=== PATIENT | male | born 1965 | race Caucasian/White ===

== ENCOUNTER → 2017-06-02 | Outpatient (CLI) | payer OTHER ==
[~2017-06-02] MED LIST: AMLODIPINE BESYL5 MG PO; DIGOXIN125 MCG PO; ELIQUIS5 MG PO; HYDROCHLOROTHIA25 MG PO; HYDROCODON-ACE1 EAC5 PO; KLONOPIN0.5 M3 PO; LIPITOR40 MG PO; LO-DOSE ASPIRIN81 M1 PO; LOPRESSOR PO; METOPROLOL PO; METOPROLOL TAR25 MG PO; NEURONTIN100 MG PO; NICOTINE PATCH1 EAC1 TD; PERCOCET10 PO; ZESTRIL40 MG PO
--- NOTE | ~2017-06-02 | CO ---
Unit #: [id number] #: [id number] Patient: SADIE VILLARREAL JR [id number] [address] [place], [place] [address] [id number] O MR#: [id number] NAME: SADIE VILLARREAL JR ROOM: Age: 52 Sex: M Admission Date: 06/02/2017 : 1965 Attending Physician: Valdez Turner M.D. Primary Care Physician: Rocco Andrade Jr., A.P.R.N. Consultation Date: 06/02/2017 CONSULTATION REPORT HISTORY OF PRESENT ILLNESS This is a 52-year-old white male with history of hypertension, hyperlipidemia, COPD, obstructive sleep apnea and is noncompliant with CPAP, nicotine abuse, and recently diagnosed with hepatitis not sure if it is B or C, who came in for preadmission today for repair of a right inguinal hernia by Dr. Turner scheduled for 06/13/2017. Preop EKG shows atrial fibrillation. The rate is around 102, it has a variable rate compared to an EKG that was done on 08/20/2016. He was in normal sinus rhythm. The patient states over the weekend, he was helping family member move and he was lifting heavy furniture. He said he got a little dyspneic and also lightheaded. He said he had to sit down and rest a few times. He in the past few months has had occasional left anterior chest sharp pain, shooting without any radiation. He said it only lasts for maybe 5 or 10 seconds, he denies any diaphoresis, shortness of breath, palpitations, dizziness, or nausea with the episode. He has not had any recent fever or chills. He has occasional nonproductive thick cough. States he has been compliant with his medications that he has been prescribed. He did have a normal echo and stress test back in 2014. He has not seen a member services coordinator since that time. PAST MEDICAL HISTORY 1. Mild obesity, 75 pounds. 2. In 03/2015, he had an exercise Cardiolite stress test that showed exercise time 7 minutes and 40 seconds. No infarction or ischemia. EF was 90%. 3. In 03/2015, 2D echo, LVEF of 69%. Technically limited study. Moderate left ventricular hypertrophy. 4. Hypertension. 5. Hyperlipidemia. 6. COPD. 7. Obstructive sleep apnea, but noncompliant with his CPAP. 8. Hepatitis C or B, the patient is not sure. 9. Nicotine abuse. PAST SURGICAL HISTORY Cervical spine surgery in 07/2016 that was done at [facility]. HOME MEDICATIONS Amlodipine 5 mg one tablet p.o. daily, aspirin 81 mg p.o. daily, atorvastatin 40 mg p.o. daily, hydrochlorothiazide 25 mg one tablet p.o. daily, lisinopril 40 mg one tablet daily, clonazepam 0.5 mg one tablet p.o. daily, cyclobenzaprine HCl 5 mg one tablet p.o. daily, gabapentin 100 Unit #: [id number] #: [id number] Patient: SADIE VILLARREAL JR KARRI mg p.o. daily, Movantik 25 mg one tablet daily, [place] 10/325 one tablet every 8 hours p.r.n., mg one tablet p.o. q.h.s., vitamin B12 1000 mcg p.o. daily, vitamin B6 25 mg p.o. daily, vitamin D2 one tablet daily. ALLERGIES No known drug allergies. SOCIAL HISTORY The patient lives in his home. He works for a [employer]. 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 He says he does mow his grass and he takes care of his home. He is not on any routine exercise regimen however. He does smoke about a pack of cigarettes a day, but smoking most of his adult life. He used to drink occasional beer, but nothing excessively. He denies any illicit drug abuse. FAMILY HISTORY He was told his father at the age of 42, but he is not clear of the details. He was estranged from his father. His mother of natural causes. His siblings are in generally well health. REVIEW OF SYSTEMS See details in HPI. PHYSICAL EXAMINATION GENERAL: Mr. Villarreal is a 52-year-old white male, in no acute respiratory distress. He is awake, alert, oriented. VITAL SIGNS: Blood pressure is 134/94, heart rate is 106, respirations are 17, he is afebrile, O2 saturations 94% on room air. NECK: Trachea midline. No thyromegaly or lymphadenopathy. Normal carotid upstrokes. No jugular venous distention. HEART: S1, S2. Irregular rate and rhythm. No clicks, murmurs, or rubs. LUNGS: Diminished, otherwise clear. ABDOMEN: Obese, soft, nontender. EXTREMITIES: Pedal pulses are palpable. 1+ pedal edema. DIAGNOSTIC STUDIES LABORATORY RESULTS: His glucose is 106, BUN 14, creatinine 0.6, eGFR is 115.6. Sodium 136, potassium 5.1, chloride 102, CO2 of 26, calcium is 9.6, total protein 7.1, albumin 4.1, bilirubin total 0.6, AST 28, ALT 41, alkaline phosphatase is 49. TSH and magnesium are pending. WBCs 7.1, hemoglobin 16.7, hematocrit 48.7, and platelets is 203. CARDIOVASCULAR STUDIES: EKG shows atrial fibrillation with rapid ventricular response, ventricular rate is 102 beats per minute, poor R-wave progression, low voltage in inferior leads. Compared to EKG back in 07/2016, it showed normal sinus rhythm. He had left atrial abnormality, slow R-wave progression, otherwise unremarkable. IMPRESSION 1. Inguinal hernia. 2. Atrial fibrillation with rapid ventricular response. New onset, questionable onset. 3. Hypertension. 4. Hyperlipidemia. 5. Chronic obstructive pulmonary disease. Obstructive sleep apnea, noncompliant with CPAP. 6. History of newly diagnosed hepatitis B or C. The patient is not sure. Unit #: [id number] #: [id number] Patient: SADIE VILLARREAL JR 7. In 03/2015, he had a 2D echo, LVEF of 69%. Technically limited study. Moderate left ventricular hypertrophy. 8. In 03/2015, exercise Cardiolite stress test. Exercise time 7 minutes and 40 seconds. No infarction or ischemia. Ejection fraction is 90%. PLAN 1. Cardiology has been consulted for preop evaluation before his right inguinal hernia repair. On his preop findings, his EKG shows new onset atrial fibrillation, questionable duration. Looking back, he was in normal sinus rhythm back in 07/2016. 2. Dr. Ibarra examined the patient and reviewed his records and history. We will stop his amlodipine and start him on metoprolol tartrate one tablet p.o. b.i.d. 3. We will check a TSH and magnesium and evaluate. 4. The patient does not have any signs or symptoms of acute congestive heart failure or unstable angina. He does have occasional some sharp, shooting pains in the chest, but it is somewhat atypical. After examination and review, Dr. Ibarra feels the patient is permissible to undergo surgery at an acceptable risk. 5. She advises the patient to stay on aspirin until up to the surgery and we will see the patient postoperatively or his hospitalization and we will see if he remains in atrial fibrillation. If he does we will discuss about chronic anticoagulation at that time. 6. We will instruct the patient to follow up with Dr. Ibarra on 07/31/2017Monday at 12:15 p.m. 7. We will also instruct the patient to come two weeks prior to coming in to see Dr. Ibarra that would be by 07/17/2017 to get a 24-hour Holter 1 to 2 weeks before his appointment and she will evaluate if he is in and out of atrial fibrillation. 8. Encourage the patient to completely quit smoking. Smoking cessation information provided to the patient. The patient voiced that he wants to discuss with his PCP about maybe being on Chantix. 9. Further recommendations pending. 10. The patient does have obstructive sleep apnea, and he says he is not compliant with CPAP. Encourage the patient to try to follow up on that with his PCP and try some different options for his obstructive sleep apnea to be compliant with the management. 11. Also encourage the patient to after surgery and after the next few weeks need to develop an exercise program and lose weight and healthy lifestyle modifications including diet and exercise, quit smoking. Thank you very much for allowing us to assist in the care and we will see the patient intraoperatively if necessary. Also noted that we instructed the patient to take his metoprolol that morning of his surgery. Dictated by... Raza Scott/cammie TD: 06/03/2017 11:53 JOB #: [id number] CC: Valdez Turner M.D. Unit #: [id number] #: [id number] Patient: SADIE VILLARREAL JR CONSULTATION REPORT Page 1 of 1 X Lavonne Botello APRN X CONSULTATION REPORT
--- NOTE | ~2017-06-02 | EKG ---
PATIENT: SADIE VILLARREAL UNIT #: [id number] Ventricular Rate: 102 BPM Atrial Rate: 375 BPM QRS Duration: 82 ms Q-T Interval: 336 ms QTC Calculation(Bezet): 437 ms Calculated R [place]: 34 degrees Calculated T [place]: 0 degrees Diagnosis Line: Atrial fibrillation with rapid ventricular Diagnosis Line: response Diagnosis Line: Cannot rule out Anterior infarct , age Diagnosis Line: undetermined Diagnosis Line: Abnormal ECG Diagnosis Line: No previous ECGs available Diagnosis Line: Confirmed by JANA BELLO MD ([id number]) on 06/04/2017 Diagnosis Line: 10:58:30 PM INTERPRETING MD: ACE MENON
--- NOTE | ~2017-06-02 | EKG ---
PATIENT: SADIE VILLARREAL UNIT #: [id number] Ventricular Rate: 102 BPM Atrial Rate: 375 BPM QRS Duration: 82 ms Q-T Interval: 336 ms QTC Calculation(Bezet): 437 ms Calculated R [place]: 34 degrees Calculated T [place]: 0 degrees Diagnosis Line: Atrial fibrillation with rapid ventricular Diagnosis Line: response Poor R wave progression questionable lead Diagnosis Line: position or body habitus Abnormal ECG Diagnosis Line: No previous ECGs available Diagnosis Line: Reconfirmed by JANA BELLO MD ([id number]) on Diagnosis Line: 06/04/2017 10:59:12 PM INTERPRETING MD: ACE MENON
[2017-06-02 12:22] LABS: HEMATOCRIT 48.7 % (38.0-50.0); HEMOGLOBIN 16.7 gm/dL (13.0-16.0); MEAN CELL VOLUME 90.3 FL (83-96); MEAN CORPUSCULAR HEMOGLOBIN 30.9 PG (28-34); MEAN CORPUSCULAR HGB CONC 34.2 g/dL (30-36); MEAN PLATELET VOLUME 9.1 FL (6.5-11.5); RED BLOOD COUNT 5.4 X10e (3.90-5.60); RED CELL DISTRIBUTION WIDTH 14.8 % (11.0-15.5); WHITE BLOOD COUNT 7.1 X10e3 (4.0-10.5)
[2017-06-02 12:47] LABS: ALBUMIN SERUM 4.1 g/dL (3.5-5.0); BILIRUBIN,TOTAL 0.6 mg/dL (0.2-2.0); BUN/CREATININE RATIO 23.33; CALCIUM SERUM 9.6 mg/dL (8.4-10.2); CREATININE SERUM 0.6 mg/dL (0.6-1.4); GLOM FILT RATE Estimated 115.6 mL/min (>60); POTASSIUM 5.1 mmol/L (3.5-5.1); PROTEIN TOTAL SERUM 7.1 g/dL (6.0-8.3)
== END | disposition home or self-care (01) ==
LOC: CAMB 10:58
PROVIDERS: Specialist
DX: Z01.818 Encounter for other preprocedural examination (principal); K40.90 Unilateral inguinal hernia, without obstruction or gangrene, not specified as recurrent
CPT/HCPCS: 36415; 80053; 83735; 84443; 85027; 93005

== ENCOUNTER 2017-06-07 15:50 | Inpatient (IN) | payer OTHER ==
[~2017-06-07] VITALS: Ht 175.3 cm; Wt 123.6 kg
--- NOTE | ~2017-06-07 | BMI ---
[facility] Nutrition Therapy DATE: 06/08/17 Patient: SADIE VILLARREAL Physician: ATTPRE Address: [address] [place] [address] Room/Bed: [address] [place] [address], Zip: [place] [address] Admit Date: 06/07/17 Date of : [birth year] Height: 5 9 Weight: 272 123.6 HIGH BMI NOTE: Admitting DX: Pt is a 52 y/o male admitted for right inguinal hernia repair ANTHROPOMETRICS: Ht:69" Wt:272# BMI:40.2 IBW:160 %IBW:170% DIET: NPO RECOMMENDATIONS: Once medically feasible, please initiate PO diet with a heart healthy restriction to promote gradual weight loss towards a healthy BMI (19-25) or +/- 10% of IBW. Respectfully, Robyn Ordaz, Needle Leader Shameka Herrera, MS, RD, LD Food and Nutrition[facility] Services [facility] cc: client file
--- NOTE | ~2017-06-07 | EKG ---
PATIENT: SADIE VILLARREAL UNIT #: [id number] Ventricular Rate: 89 BPM Atrial Rate: 85 BPM QRS Duration: 76 ms Q-T Interval: 334 ms QTC Calculation(Bezet): 406 ms Calculated R [place]: 0 degrees Calculated T [place]: 3 degrees Diagnosis Line: Atrial fibrillation Diagnosis Line: Abnormal ECG Diagnosis Line: When compared with ECG of 02-JUN-2017 11:32, Diagnosis Line: No significant change was found Diagnosis Line: Confirmed by GIRMA HAINES MD ([id number]) on 06/10/2017 Diagnosis Line: 3:19:00 PM INTERPRETING MD: ZAKI MENON
--- NOTE | ~2017-06-07 | TH ---
Unit #: [id number] #: [id number] Patient: SADIE VILLARREAL JR [id number] [address] [address] [id number] I MR#: [id number] NAME: SADIE VILLARREAL JR : 1965 SEX: M STUDY DATE/TIME: 06/08/2017 UNIT: [facility] ROOM: 571 STUDY DESCRIPTION: Stress nuclear study Attending Physician: Janeth Ibarra M.D. Primary Care Physician: Rocco Andrade Jr., A.P.R.N. CARDIOLOGY REPORT EXAM Stress nuclear study. INDICATION Atrial fibrillation, hypertension, dyslipidemia, inability to exercise adequately. SUMMARY The patient received Lexiscan intravenously while at rest. Full ECG results are reported separately but briefly they showed atrial fibrillation, with T wave inversion lead 2 and lead 3 at rest. Lead 2 pseudo normalized with stress. Heart rate increased from 90 to 129, blood pressure decreased from 155/111 to 124/97. Patent did experience any angina. Technetium 99 Cardiolite 10.3 and 33.2 mCi was injected at rest and stress respectively. Appropriate views were obtained. FINDINGS Perfusion images demonstrate normal perfusion throughout the myocardium both at rest and stress. There is intestinal artifact present at both rest and stress. Planar images demonstrate normal LV and RV size, no significant patient motion. No significant lung uptake. Summed stress score is 0. Gated perfusion wall motion analysis demonstrates normal wall motion throughout the myocardium with end-diastolic volume 96 mL, ejection fraction greater than 65%. IMPRESSION 1. Myocardial perfusion scan demonstrates no ischemia or infarction. 2. Normal wall motion with excellent ejection fraction. 3. Low risk for ischemic cardiac disease at this time or based on this study. Dictated by... Micky Balderas/jg TD: 06/10/2017 19:21 JOB #: [id number] Unit #: [id number] #: [id number] Patient: SADIE VILLARREAL JR CARDIOLOGY REPORT Page 1 of 1 X Barrett Haque MD CARDIOLOGY REPORT
--- NOTE | ~2017-06-07 | CR72 ---
[facility] Service of [facility] RADIOLOGY TEXT RESULTS PATIENT: SADIE VILLARREAL JR LOCATION: [facility] 57-01 : [birth year] UNIT #: [id number] AGE: [address]: Janeth Ibarra MD SEX: M ORDER DR: [id number] [facility] [address] [facility]. [place], [place] [address] [id number] I MR#: [id number] Acc #: [id number] NAME: SADIE VILLARREAL JR : 1965 SEX: M STUDY DATE/TIME: 06/07/2017 17:24 UNIT: [facility] ROOM: [facility] STUDY DESCRIPTION: CR Chest Single View Portable Attending Physician: Janeth Ibarra M.D. Ordering Physician: Sarah Tobin M.D. Primary Care Physician: Rocco Andrade Jr., A.P.R.N. MEDICAL IMAGING REPORT This report is preliminary unless electronic signature is present EXAM Portable chest. HISTORY Chest pain, fatigue and weakness for 2 days. FINDINGS Moderate cardiac enlargement is accentuated by low lung volumes. Pulmonary vascularity is normal. Mild elevation of the right hemidiaphragm. No infiltrates or effusions are identified. Lower cervical fusion. IMPRESSION 1. Cardiac enlargement is accentuated by low lung volumes. 2. No acute findings. 3. No active disease in the lungs. Dictated by... Jeff Castillo M.D. THIS IS AN ELECTRONICALLY VERIFIED REPORT Jeff Castillo M.D. at 06/08/2017 11:34 PM DFL/pc TD: 06/08/2017 08:35 JOB #: [id number] MEDICAL IMAGING REPORT Page 1 of 1 COPY
--- NOTE | ~2017-06-07 | ST ---
Unit #: [id number] #: [id number] Patient: SADIE VILLARREAL JR [id number] [address] [place], [place] [address] [id number] I MR#: [id number] NAME: SADIE VILLARREAL JR : 1965 SEX: M STUDY DATE/TIME: UNIT: [facility] ROOM: 571 STUDY DESCRIPTION: Stress Test Attending Physician: Janeth Ibarra M.D. Primary Care Physician: Rocco Andrade Jr., A.P.R.N. CARDIOLOGY REPORT EXAM Lexiscan Cardiolite Stress Test DESCRIPTION Baseline EKG is atrial fibrillation with controlled ventricular rate of 91 beats per minute, Q waves in V1, also V3. Poor R wave progression. Lexiscan is a four minute test with Lexiscan being injected within the first minute followed by Cardiolite. EKG during the test was equivocal to baseline. It is noted that at peak infusion of the Lexiscan his heart rate increased to a maximum heart rate of 153 beats per minute. The patient had no complaints of chest pain, palpitations. Did complain of some shortness of breath and dizziness and weakness at peak infusion. Symptoms resolved in recovery phase. EKG during the test was equivocal to baseline, nothing acute. Maximum heart rate, as mentioned, was 153 beats per minute with maximum blood pressure response of 155/111 mmHg. Cardiolite was injected after Lexiscan within the first minute of the test. Radionuclide test pending. Please correlate with nuclear images. Of note, the patient did not get any of his blood pressure medications this morning. Have instructed the staff nurse to give his medications as soon as possible. Dictated by... Macy ScottP.RLizbetNLizbet for Micky Restrepo/jin TD: 06/08/2017 13:13 JOB #: [id number] Unit #: [id number] #: [id number] Patient: SADIE VILLARREAL JR CARDIOLOGY REPORT Page 1 of 1 X Lavonne Botello APRN CARDIOLOGY REPORT
--- NOTE | ~2017-06-07 | EKG ---
PATIENT: SADIE VILLARREAL UNIT #: [id number] Ventricular Rate: 70 BPM Atrial Rate: 129 BPM QRS Duration: 76 ms Q-T Interval: 372 ms QTC Calculation(Bezet): 401 ms Calculated R [place]: 80 degrees Calculated T [place]: 46 degrees Diagnosis Line: Atrial fibrillation Diagnosis Line: Abnormal ECG Diagnosis Line: When compared with ECG of 07-JUN-2017 17:14, Diagnosis Line: (unconfirmed) Diagnosis Line: Questionable change in QRS axis Diagnosis Line: Nonspecific T wave abnormality has replaced Diagnosis Line: inverted T waves in Inferior leads Diagnosis Line: T wave inversion no longer evident in Anterior Diagnosis Line: leads Diagnosis Line: Confirmed by GIRMA HAINES MD ([id number]) on 06/10/2017 Diagnosis Line: 3:20:21 PM INTERPRETING MD: ZAKI MENON
--- NOTE | ~2017-06-07 | DS ---
Unit #: [id number] #: [id number] Patient: SADIE VILLARREAL JR [id number] [address] [address] [id number] I MR#: [id number] NAME: SADIE VILLARREAL JR ROOM: 571 Age: 52 Sex: M Admission Date: 06/07/2017 : 1965 Discharge Date: 06/08/2017 Attending Physician: Janeth Ibarra M.D. Primary Care Physician: Rocco Andrade Jr., A.P.R.N. DISCHARGE SUMMARY SHORT-STAY SUMMARY DISCHARGE DIAGNOSES 1. Lightheadedness. 2. Palpitations. 3. Chest discomfort. 4. Status post Lexiscan Cardiolite stress test with revealed no ischemia, no focal wall motion abnormality. 5. Hypertension. 6. Hyperlipidemia. 7. Chronic obstructive pulmonary disease. 8. Last echocardiogram done in 03/2015 shows left ventricular ejection fraction of 69%. Technically limited study. 9. Obstructive sleep apnea but noncompliant with the CPAP. 10. History of hepatitis C or B, the patient is not sure. 11. Cervical neck pain, status post surgery. 12. Nicotine abuse. DISCHARGE MEDICATIONS 1. Neurontin 100 mg p.o. three times daily p.r.n. for neck pain. 2. Nicotine patch 21 mg every morning over the counter. 3. Klonopin 0.5 mg p.o. twice daily. 4. Norvasc 5 mg p.o. daily. 5. Metoprolol tartrate 25 mg 1 tablet every 12 hours. 6. Hydrochlorothiazide 25 mg 1 tablet daily. 7. Lisinopril 40 mg p.o. daily. 8. Aspirin 81 mg daily. 9. Hydrocodone/acetaminophen 10/325 1 tablet p.o. p.r.n. for pain. 10. Will start the patient on Lipitor 40 mg 1 tablet p.o. at h.s. due to elevated LFTs. HOSPITAL COURSE This is a 52-year-old white male who Dr. Ibarra and myself had seen on June 02, 2017 for a preop clearance to have repair of a right inguinal hernia by Dr. Turner scheduled for 06/13/2017. The reason for the consultation at that time, because he had an EKG that showed atrial fibrillation. His heart rate was fairly controlled. He was looking back on previous EKGs. Back in July 2016 he was in normal sinus rhythm. Patient was asymptomatic. He did not have any dizziness, palpitation, shortness of breath. He had been doing a lot of moving furniture and heavy lifting about three days prior to this consultation. Patient back in 2014 had the normal echo and stress test. He never had seen a tire and lube technician before that time. Recommendations at that time was to start on metoprolol 25 mg p.o. twice daily and aspirin. He would see Unit #: [id number] #: [id number] Patient: PHIL BAYSADIE in the office after the surgery and would at that time talk about chronic anticoagulation. Dr. Ibarra had felt that it was permissible for the patient to undergo surgery at an acceptable risk. As mentioned, the patient came in to the ER yesterday with complaints of generalized weakness, had some substernal chest tightness. He felt some occasional palpitations. I think he was concerned about his atrial fibrillation. In the emergency room the patient's blood pressure was 138/100, heart rate 62, respirations 18, temperature 97.8, O2 sat was 98% on room air. EKG showed atrial fibrillation with no acute ischemic changes. Cardiac enzymes were negative. Chest x-ray did not show anything acute. Dr. Small examined and evaluated the patient and after interview felt the patient needed an exercise Cardiolite stress test to further evaluate for ischemic heart disease. Patient performed the Lexiscan Cardiolite stress test. The results were no ischemia. No focal wall motion abnormality. Ejection fraction was normal. Patient will be discharged home today on current cardiac management. He was continued on the metoprolol and an aspirin for now. His surgery will be on the . After surgery he will be started on chronic anticoagulation. Patient has a CHADS2 score of 1. The patient's blood pressure has been a little elevated during this admission however his medication was held this morning for the stress test. Looking on his home medications, as mentioned he just started on the metoprolol this past, he said, Monday which was three days ago and he is also on hydrochlorothiazide, lisinopril and Norvasc. Can possibly increase the dose of Norvasc if his blood pressure remains elevated. On day of discharge patient is in stable condition. No complaints of chest pain, palpitations, dizziness or shortness of breath. PHYSICAL EXAMINATION ON TIME OF DISCHARGE VITAL SIGNS: Blood pressure is 149/90, respirations 18, heart rate is 84, temperature is 97.9, O2 sats 98% on room air. NECK: Trachea midline. No thyromegaly or lymphadenopathy. Normal carotid upstrokes. No jugular venous distention. HEART: S1, S2. Regular rate and rhythm. No clicks, murmurs, or rubs. LUNGS: Diminished, otherwise clear. ABDOMEN: Obese, soft, nontender. EXTREMITIES: Pedal pulses are palpable. No pedal edema. DIAGNOSTIC STUDIES LABORATORY DATA: Glucose is 108, BUN 15, creatinine 0.7, eGFR is 108.5. Sodium 140, potassium 4.0, chloride 105, CO2 28, calcium is 9.0. His fasting lipid profile is cholesterol 161, triglycerides 103, LDL is 101, HDL is 39. TSH back on the 02 of June was 0.80. INR is 1.0, D-dimer is 286. WBCs 7.9, hemoglobin 16, hematocrit is 47.9, and platelets is 186. Initial cardiac enzymes: CK-MB is less than 1.0, troponin less than 0.05, CK-MB is less than 1.0, troponin les than 0.05. Repeat enzymes this morning his troponin less than 0.05. CARDIAC: EKG shows atrial fibrillation with controlled ventricular rate around 70 beats per minute, left ventricular hypertrophy, nothing acute. PLAN/INSTRUCTIONS Unit #: [id number] #: [id number] Patient: PHIL BAYSADIE 1. Patient will be discharged home today and instructed to keep the appointment he has with Dr. Ibarra on July 31 at 12:15 p.m. 2. There are plans for patient to have inguinal hernia repair next week on June 13. At that time we will advise the patient on chronic anticoagulation. 3. Patient is instructed to get a 24-hour Holter, go in a week before his office visit to see if he is still in atrial fibrillation. 4. Patient is to continue on his amlodipine, aspirin, hydrochlorothiazide, lisinopril and metoprolol. 5. Encouraged patient to completely quit smoking. Smoking cessation information provided to patient. 6. Instruct the patient to follow up with his PCP, Dr. Andrade. 7. Instruct the patient that if he has any further problems/if he wants to call Dr. Ibarra in the office that information is provided to the patient. 8. See any additional information on the H and P that was dictated on June 02, 2017. Dictated by... Raza Scott/cassie TD: 06/08/2017 18:12 JOB #: [id number] DISCHARGE SUMMARY Page 1 of 1 X Lavonne Botello APRN X DISCHARGE SUMMARY
[~2017-06-07 15:50] MED LIST changes: -DIGOXIN125 MCG PO; -ELIQUIS5 MG PO; -LOPRESSOR PO; -METOPROLOL PO; -METOPROLOL TAR25 MG PO; -NICOTINE PATCH1 EAC1 TD; -PERCOCET10 PO
[2017-06-07 18:25] LABS: PARTIAL THROMBOPLASTIN TIME 24.8 SECONDS (23.5-31.3); PROTHROMBIN TIME (PATIENT) 10.7 SECONDS (10.0-11.7)
[2017-06-07 18:31] LABS: BASOPHIL# 0.1 X10e3 (0-0.3); BASOPHIL% 0.7 % (0-2.5); DIFF IND NO; EOSINOPHIL# 0.1 X10e3 (0-0.7); EOSINOPHIL% 1.9 % (0.0-7.0); HEMOGLOBIN 16.2 gm/dL (13.0-16.0); MEAN CELL VOLUME 90.1 FL (83-96); MEAN CORPUSCULAR HEMOGLOBIN 30.3 PG (28-34); MEAN CORPUSCULAR HGB CONC 33.7 g/dL (30-36); MONOCYTE# 0.7 X10e3 (0-1.0); MONOCYTE% 9.8 % (3.0-12.0); NEUTROPHIL# 4.6 X10e3 (1.5-7.1); NEUTROPHIL% 60.6 % (40-75); PLATELET COUNT 204 X10e3 (140-420); RED BLOOD COUNT 5.33 X10e (3.90-5.60); RED CELL DISTRIBUTION WIDTH 14.2 % (11.0-15.5); WHITE BLOOD COUNT 7.5 X10e3 (4.0-10.5)
[2017-06-07 18:33] LABS: ALBUMIN SERUM 3.9 g/dL (3.5-5.0); BILIRUBIN, DIRECT 0.1 mg/dL (0.0-0.2); BILIRUBIN,INDIRECT 0.3 mg/dL (0.0-0.9); BILIRUBIN,TOTAL 0.4 mg/dL (0.2-2.0); CALCIUM SERUM 9.2 mg/dL (8.4-10.2); CREATININE SERUM 0.7 mg/dL (0.6-1.4); GLOM FILT RATE Estimated 108.5 mL/min (>60); PROTEIN TOTAL SERUM 6.9 g/dL (6.0-8.3)
[2017-06-07 19:06] LABS: POC - CKMB <1.0 ng/mL (0.0-7.9); POC - TROPONIN <0.05 ng/mL (<=0.05)
[2017-06-07 19:37] LABS: POC - CKMB <1.0 ng/mL (0.0-7.9); POC - TROPONIN <0.05 ng/mL (<=0.05)
[2017-06-08 05:27] LABS: BASOPHIL# 0.1 X10e3 (0-0.3); BASOPHIL% 0.7 % (0-2.5); EOSINOPHIL# 0.1 X10e3 (0-0.7); EOSINOPHIL% 1.9 % (0.0-7.0); HEMATOCRIT 47.9 % (38.0-50.0); LYMPHOCYTE# 2.7 X10e3 (1.0-3.5); LYMPHOCYTE% 33.9 % (17.0-45.0); MEAN CELL VOLUME 90.2 FL (83-96); MEAN CORPUSCULAR HEMOGLOBIN 30.1 PG (28-34); MEAN CORPUSCULAR HGB CONC 33.4 g/dL (30-36); MONOCYTE# 0.6 X10e3 (0-1.0); MONOCYTE% 8.2 % (3.0-12.0); NEUTROPHIL# 4.4 X10e3 (1.5-7.1); NEUTROPHIL% 55.3 % (40-75); PLATELET COUNT 186 X10e3 (140-420); RED BLOOD COUNT 5.31 X10e (3.90-5.60); RED CELL DISTRIBUTION WIDTH 14.7 % (11.0-15.5); WHITE BLOOD COUNT 7.9 X10e3 (4.0-10.5)
[2017-06-08 05:29] LABS: DIFF IND NO
[2017-06-08 06:48] LABS: BUN/CREATININE RATIO 21.42; CREATININE SERUM 0.7 mg/dL (0.6-1.4); GLOM FILT RATE Estimated 108.5 mL/min (>60)
[2017-06-08 12:03] LABS: CHOLESTEROL 161 mg/dL (0-200); HDL CHOLESTEROL 39 mg/dL (29-75); LDL CHOLESTEROL 101 mg/dL (-130); LDL/HDL RATIO 3 RATIO (0-4); TRIGLYCERIDES 103 mg/dL (10-160)
[2017-06-13] MEDS ORDERED: METOPROLOL PO (10:27)
[2017-06-13] MEDS ORDERED: NICOTINE PATCH1 EAC1 TD (14:52)
[2017-06-15] MEDS ORDERED: METOPROLOL TAR25 MG PO (09:13)
[2017-06-15] MEDS ORDERED: DIGOXIN125 MCG PO (09:23)
[2017-06-15] MEDS ORDERED: LOPRESSOR PO (09:25)
[2017-06-15] MEDS ORDERED: ELIQUIS5 MG PO (09:28)
[2017-06-15] MEDS ORDERED: PERCOCET10 PO (09:49)
== END 2017-06-08 15:56 | disposition home or self-care (01) | DRG 309 ==
LOC: CED 15:50 → C5C 21:09 → CEDOF 21:09 → C5C 22:13
PROVIDERS: Emergency Medicine; Internal Medicine Cardiovascular Disease
DX: I48.91 Unspecified atrial fibrillation (principal); Z68.41 Body mass index [BMI] 40.0-44.9, adult; I10 Essential (primary) hypertension; R42 Dizziness and giddiness; R07.9 Chest pain, unspecified; E78.5 Hyperlipidemia, unspecified; J44.9 Chronic obstructive pulmonary disease, unspecified; G47.33 Obstructive sleep apnea (adult) (pediatric); Z91.19 Patient's noncompliance with other medical treatment and regimen; Z86.19 Personal history of other infectious and parasitic diseases; M54.2 Cervicalgia; F17.200 Nicotine dependence, unspecified, uncomplicated; F41.9 Anxiety disorder, unspecified; E66.9 Obesity, unspecified
CPT/HCPCS: 36415; 71010; 78452; 80048; 80061; 80076; 82553; 83880; 84484; 85025; 85379; 85610; 85730; 93005; 93017; 99285; A9500; J2785